=== PATIENT | male | born 1960 | race Caucasian/White ===

== ENCOUNTER 2021-04-06 23:28 | Emergency (ER) | payer OTHER ==
[~2021-04-06 23:28] MED LIST: ONDANSETRON HCL4 MG PO; PREDNISONE 20MG20 MG PO; VENTOLIN HFA IN18 GM INH
[2021-04-07] MEDS ORDERED: VIBRAMYCIN100 MG PO (01:35)
== END 2021-04-07 01:57 | disposition home or self-care (01) ==
LOC: FER 23:28
DX: S61.213A Laceration without foreign body of left middle finger without damage to nail, initial encounter (principal); S61.215A Laceration without foreign body of left ring finger without damage to nail, initial encounter; Z23 Encounter for immunization; Z98.890 Other specified postprocedural states; Z95.2 Presence of prosthetic heart valve; Z79.01 Long term (current) use of anticoagulants; W26.0XXA Contact with knife, initial encounter; Y92.89 Other specified places as the place of occurrence of the external cause; Y99.0 Civilian activity done for income or pay
CPT/HCPCS: 90471; 90715